=== PATIENT | female | born 2000 | race American Indian/Alaskan Native ===

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

== ENCOUNTER 2021-07-25 09:26 | Emergency (ER) | payer MEDICAID ==
[2021-07-25 10:30] LABS: Hematocrit 38.2 % (30.3-42.9); Hemoglobin 12.6 gm/dl (10.1-14.3); Mean Corpuscular HGB Conc 33 % (30-34); Mean Corpuscular Volume 86 fl (79-97); Platelet Count 262 K/mm3 (140-440); Red Blood Count 4.47 M/mm3 (3.65-5.03); Red Cell Distribution Width 14.4 % (13.2-15.2)
[2021-07-25 10:47] LABS: Alanine Aminotransferase 14 units/L (7-56); Albumin 4.7 g/dL (3.9-5); Blood Urea Nitrogen 5 mg/dL (7-17); Calcium 9.4 mg/dL (8.4-10.2); Hemolysis Index 3
[2021-07-25 10:53] LABS: BUN/Creatinine Ratio 8
[2021-07-25] MEDS ORDERED: ONDANSETRON 4 MG ODT TAB PO ONE (11:26)
[2021-07-25 11:52] LABS: Bacteria,Urine 1+ /HPF (Negative); Bilirubin,Urine NEG (Negative); Blood,Urine SM (Negative); Color,Urine Yellow (Yellow); Mucus,Urine 3+ /HPF; Urobilinogen,Urine < 2.0 mg/dL (<2.0)
--- NOTE | 2021-07-25 13:02 | Ultrasound Report ---
ULTRASOUND OBSTETRIC INDICATION / CLINICAL INFORMATION: preg, abdominal pain. Pelvic pain and cramping. Beta hCG level = 2 0,254. - Clinical Gestational Age (GA) in weeks, days: 8, 4 TECHNIQUE: Transabdominal and Transvaginal. COMPARISON: None available. FINDINGS: GESTATIONAL SAC: Well-defined oval shape and intrauterine in location. YOLK SAC: No significant abnormality. EMBRYO/FETUS: No significant abnormality. - [place]-Rump Length = 0.32 cm = 6, 0 weeks, days - Heart Rate, beats per minute (if present) = 112 UTERUS: Small subchorionic bleed adjacent to the gestational sac measuring about 0.8 x 0.2 cm. ADNEXA: Small right ovarian corpus luteum cyst. Left ovary appears normal. No adnexal mass or cyst. FREE FLUID: None. ADDITIONAL FINDINGS: None. IMPRESSION: 1. Single, living intrauterine with estimated sonographic age of 6, 0 weeks, days. 2. Small subchorionic bleed. Signer Name: Odalis Flores MD Signed: 07/25/2021 12:58 PM Workstation Name: [id number]
--- NOTE | 2021-07-25 13:02 | Ultrasound Report ---
ULTRASOUND OBSTETRIC INDICATION / CLINICAL INFORMATION: preg, abdominal pain. Pelvic pain and cramping. Beta hCG level = 2 0,254. - Clinical Gestational Age (GA) in weeks, days: 8, 4 TECHNIQUE: Transabdominal and Transvaginal. COMPARISON: None available. FINDINGS: GESTATIONAL SAC: Well-defined oval shape and intrauterine in location. YOLK SAC: No significant abnormality. EMBRYO/FETUS: No significant abnormality. - [place]-Rump Length = 0.32 cm = 6, 0 weeks, days - Heart Rate, beats per minute (if present) = 112 UTERUS: Small subchorionic bleed adjacent to the gestational sac measuring about 0.8 x 0.2 cm. ADNEXA: Small right ovarian corpus luteum cyst. Left ovary appears normal. No adnexal mass or cyst. FREE FLUID: None. ADDITIONAL FINDINGS: None. IMPRESSION: 1. Single, living intrauterine with estimated sonographic age of 6, 0 weeks, days. 2. Small subchorionic bleed. Signer Name: Odalis Flores MD Signed: 07/25/2021 12:58 PM Workstation Name: [id number]
--- NOTE | 2021-07-25 13:12 | Emergency Department Report ---
ED N/V/D HPI - General Chief complaint: Abdominal Pain Stated complaint: NAUSEA/VOMITING Time Seen by Provider: 07/25/21 10:57 Source: EMS Mode of arrival: Stretcher Limitations: No Limitations - History of Present Illness Initial comments: 21 yo black female with no pmh presents to the ed for evaluation of one week history of persistent nausea and intermittent vomiting and abdominal pain. She states that about one week ago, she had unprotected sex then took a plan B pill. She states that a few days after taking the pill, she started to have her s ymptoms. She denies fever, dysuria, and vaginal discharge. MD complaint: nausea, vomiting, abdominal pain -: Gradual, week(s) (1) Associated Abdominal Pain: Yes Location: diffuse Radiation: none Severity: mild Pain Scale: 4 Quality: cramping, aching Consistency: intermittent Associated Symptoms: nausea/vomiting. denies: myalgias, chest pain, cough, diaphoresis, fever/chills, headaches, loss of appetite, malaise, rash, dysuria, shortness of breath, syncope, weakness - Related Data Previous Rx's Medication Instructions Recorded Last Taken Type Metoclopramide [Reglan] 10 mg PO TID PRN #12 tab 05/21/18 Unknown Rx Acetaminophen [Tylenol] 650 mg PO QID PRN #30 capsule 06/12/18 Unknown Rx Nitrofurantoin [place]/M-Cryst 100 mg PO BID 7 Days #14 capsule 06/30/18 Unknown Rx [Macrobid CAP] Ondansetron [Zofran Odt] 4 mg PO Q8HR PRN #12 tab.rapdis 07/25/21 Unknown Rx cephALEXin [Keflex] 500 mg PO BID #14 cap 07/25/21 Unknown Rx Allergies Allergy/AdvReac Type Severity Reaction Status Date / Time No Known Allergies Allergy Verified 06/30/18 12:51 ED Review of Systems ROS: Stated complaint: NAUSEA/VOMITING Other details as noted in HPI Comment: All other systems reviewed and negative Constitutional: denies: chills, fever Eyes: denies: vision change ENT: denies: congestion Respiratory: denies: cough, shortness of breath, SOB with exertion, SOB at rest, stridor, wheezing Cardiovascular: orthopnea. denies: chest pain, palpitations, dyspnea on exertion, edema, syncope, paroxysmal nocturnal dyspnea Gastrointestinal: abdominal pain, nausea, vomiting, hematochezia. denies: diarrhea, hematemesis, melena Genitourinary: denies: urgency, dysuria, frequency, hematuria, discharge, abnormal menses Skin: denies: rash, lesions Neurological: denies: headache, weakness, numbness, paresthesias Hematological/Lymphatic: denies: easy bleeding, easy bruising, swollen glands ED Past Medical Hx - Past Medical History Previous Medical History?: No - Surgical History Past Surgical History?: No - Social History Smoking Status: Never Smoker Substance Use Type: None - Medications Home Medications: Home Medications Medication Instructions Recorded Confirmed Last Taken Type Metoclopramide [Reglan] 10 mg PO TID PRN #12 tab 05/21/18 Unknown Rx Acetaminophen [Tylenol] 650 mg PO QID PRN #30 capsule 06/12/18 Unknown Rx Nitrofurantoin [place]/M-Cryst 100 mg PO BID 7 Days #14 capsule 06/30/18 Unknown Rx [Macrobid CAP] Ondansetron [Zofran Odt] 4 mg PO Q8HR PRN #12 tab.rapdis 07/25/21 Unknown Rx cephALEXin [Keflex] 500 mg PO BID #14 cap 07/25/21 Unknown Rx ED Physical Exam - General Limitations: No Limitations General appearance: alert, in no apparent distress - Head Head exam: Present: atraumatic, normocephalic - Eye Eye exam: Present: normal appearance. Absent: conjunctival injection - Neck Neck exam: Present: normal inspection. Absent: tenderness, lymphadenopathy - Respiratory Respiratory exam: Present: normal lung sounds bilaterally. Absent: respiratory distress, wheezes, rales, rhonchi, stridor, chest wall tenderness - Cardiovascular Cardiovascular Exam: Present: regular rate, normal heart sounds - GI/Abdominal GI/Abdominal exam: Present: soft, normal bowel sounds. Absent: distended, tenderness, guarding, rebound, rigid - Extremities Exam Extremities exam: Present: normal inspection. Absent: tenderness, normal c apillary refill, pedal edema, joint swelling, calf tenderness - Back Exam Back exam: Present: normal inspection. Absent: tenderness, CVA tenderness (R), CVA tenderness (L), vertebral tenderness - Neurological Exam Neurological exam: Present: alert, oriented X3, normal gait - Psychiatric Psychiatric exam: Present: normal affect, normal mood - Skin Skin exam: Present: warm, dry, intact, normal color ED Course Vital Signs 07/25/21 07/25/21 09:30 13:42 Temperature 98.4 F Pulse Rate 78 65 Respiratory 18 16 Rate Blood Pressure 116/80 127/86 [Left] O2 Sat by Pulse 99 99 Oximetry ED Medical Decision Making - Lab Data Result diagrams: 07/25/21 09:49 07/25/21 09:49 - Radiology Data Radiology results: report reviewed, image reviewed US: FINDINGS: GESTATIONAL SAC: Well-defined oval shape and intrauterine in location. YOLK SAC: No significant abnormality. EMBRYO/FETUS: No significant abnormality. - [place]-Rump Length = 0.32 cm = 6, 0 weeks, days - Heart Rate, beats per minute (if present) = 112 UTERUS: Small subchorionic bleed adjacent to the gestational sac measuring about 0.8 x 0.2 cm. ADNEXA: Small right ovarian corpus luteum cyst. Left ovary appears normal. No adnexal mass or cyst. FREE FLUID: None. ADDITIONAL FINDINGS: None. IMPRESSION: 1. Single, living intrauterine with estimated sonographic age of 6, 0 weeks, days. 2. Small subchorionic bleed. - Medical Decision Making 21 yo black female with no pmh presents to the ed for evaluation of one week history of persistent nausea and intermittent vomiting and abdominal pain. She states that about one week ago, she had unprotected sex then took a plan B pill. She states that a few days after taking the pill, she started to have her symptoms. She denies fever, dysuria, and vaginal discharge. Physical exam unremarkable. UA positive for UTI and US positive for IUP at 6 weeks with small subchorionic hemorrhage. She will be d/bruna home with Zofran and Keflex and advised to take as directed. She is advised to follow up with [facility] stenc[facility] for care and return ED for any concerning symptoms. She verbalizes understanding of and agreement with plan of care. Critical care attestation.: If time is entered above; I have spent that time in minutes in the direct care of this critically ill patient, excluding procedure time. ED Disposition Clinical Impression: Nausea and vomiting during prior to 22 weeks gestation Subchorionic bleed Qualifiers: Fetus number: single or unspecified fetus Trimester: first trimester Qualified Code(s): O41.8X10 - Other specified disorders of amniotic fluid and membranes, first trimester, not applicable or unspecified UTI (urinary tract infection) Qualifiers: Urinary tract infection type: acute cystitis Hematuria presence: with hematuria Qualified Code(s): N30.01 - Acute cystitis with hematuria Disposition: HOME / SELF CARE / HOMELESS Is pt being admited?: No Does the pt Need Aspirin: No Condition: Stable Instructions: Antibiotic Medicine, Adult, [id number], Urinary Tract Infection, Adult, [id number], Morning Sickness, [id number], Subchorionic Hematoma, Abdominal Pain (ED) Additional Instructions: Take medications as prescribed. Follow-up with [facility] for further evaluation and management of care. Return to the emergency department as needed. Prescriptions: cephALEXin [Keflex] 500 mg PO BID #14 cap Ondansetron [Zofran Odt] 4 mg PO Q8HR PRN #12 tab.rapdis PRN Reason: Nausea And Vomiting Referrals: [facility] [Provider Group] - 3-5 Days [facility] [Provider Group] - 3-5 Days [facility] [Provider Group] - 3-5 Days Time of Disposition: 13:12
[2021-07-25 13:43] VITALS: BP 127/86
== END 2021-07-25 13:42 | disposition home or self-care (01) ==
LOC: ED 09:26
DX: O21.8 Other vomiting complicating pregnancy (principal); O41.8X10 Other specified disorders of amniotic fluid and membranes, first trimester, not applicable or unspecified; O23.41 Unspecified infection of urinary tract in pregnancy, first trimester; Z3A.08 8 weeks gestation of pregnancy
CPT/HCPCS: 36415; 76801; 76817; 80053; 81001; 83690; 84702; 85027; 87086; 99284; J3490; Q0162

== ENCOUNTER 2021-10-03 05:33 | Emergency (ER) | payer MEDICAID ==
[2021-10-03 05:39] VITALS: BP 120/80
== END 2021-10-03 19:00 | disposition left against medical advice (07) ==
LOC: ED 05:33
DX: O21.9 Vomiting of pregnancy, unspecified (principal); Z53.21 Procedure and treatment not carried out due to patient leaving prior to being seen by health care provider; Z3A.18 18 weeks gestation of pregnancy